=== PATIENT | male | born 1935 | race Caucasian/White ===

== ENCOUNTER → 2017-07-18 15:25 | Outpatient (CLI) | payer MEDICARE, OTHER, SELFPAY ==
--- NOTE | 2017-07-21 07:37 | PM.PFT.1 ---
Pulmonary Function Test Referral & Results Date Patient Seen: 07/18/17 Requesting provider: Eva Garsia Indication: Amiodarone therapy Results: The spirometry demonstrates an FVC of 4.03 L which is 96% of predicted. The FEV1 was measured at 3.01 L which is 102% of predicted. The FEV1/FVC ratio was 75 which is 105% of predicted. No bronchodilator was administered Lung volumes show an SVC of 4.04 L which is 88% for of predicted. The diffusing capacity was measured at 29.4 for which is 85% of predicted. No hemoglobin value was provided, so no correction for potential anemia could be made, if appropriate. The maximum voluntary ventilation was slightly reduced. Interpretation: This study demonstrates normal spirometry and minimal reduction in diffusing capacity. Compared to PFTs performed in September 2015, diffusing capacity is actually improved since prior study.
== END ==
PROVIDERS: Family Provider Internal Medicine; PCP Internal Medicine; Visit Provider Internal Medicine Cardiovascular Disease
DX: Z79.899 Other long term (current) drug therapy (principal)
CPT/HCPCS: 94010; 94726; 94729

== ENCOUNTER → 2017-08-08 10:51 | Outpatient (CLI) | payer MEDICARE, OTHER, SELFPAY ==
[2017-08-08 13:22] LABS: Thyroid Stimulating Hormone 3.45 uIU/mL (0.47-4.68)
== END ==
PROVIDERS: PCP Internal Medicine; Visit Provider Internal Medicine Cardiovascular Disease
DX: I48.0 Paroxysmal atrial fibrillation (principal)
CPT/HCPCS: 36415; 84443

== ENCOUNTER → 2017-08-30 09:18 | Outpatient (CLI) | payer MEDICARE, OTHER, SELFPAY ==
--- NOTE | 2017-08-30 | DI.ECHO.S_ITS ---
[place] [facility]+ [facility] +---------+ : : [address] : : : : [id number] : : : : Phone: [phone]+ Echocardiogram Report + + :Name: BEST PHILIP Study Date: 08/30/2017 Height: 72 in : :[facility] Weight: 225 lb : : Gender: Male BSA: 2.2 m2 : :: 1935 Age: 82 yrs BP: 146/70 mmHg: :Reason For Study: Tricuspid regurgitation, Aortic : :insufficiency, Ascending aortic dilatation : :Ordering Physician: Eva : :Adonayiwroseann Performed By: Soo Coleman : + + Interpretation Summary The left ventricle is normal in size. The ejection fraction is estimated to be 55-60%.There has been no significant change in LV EF since the previous study. The right ventricle is normal in size and function. There is mild to moderate mitral regurgitation. Compared to the prior echo study, there has been an increase in the severity of mitral regurgitation. The aortic valve is mildly calcified. Leaflet mobility is mildly reduced.There is no hemodynamically significant valvular aortic stenosis. There is mild aortic regurgitation. Compared to the prior echo study, there has been no change in the severity of aortic regurgitation. There is mild to moderate tricuspid regurgitation. Compared to the prior echo exam, there has been no change in TR severity. The right ventricular systolic pressure is estimated at 30 mmHg assuming a right atrial pressure of 3 mm Hg. Asc Aorta Diam: 4.0 cm. In 06/2014 it was 3.9 cm. Procedure: A two-dimensional transthoracic echocardiogram with color flow and Doppler was performed. The study quality was technically adequate. Comparison is made with the echocardiogram of 07/03/2014. The patient was in normal sinus rhythm during the exam. The patient had a bundle branch block rhythm during the exam. Left Ventricle: The left ventricle is normal in size. Left ventricular wall thickness is mildly increased. Proximal septal thickening is noted. There is no echo evidence for significant left ventricular outflow tract obstruction. There is no thrombus. The ejection fraction is estimated to be 55-60%. There has been no significant change since the previous study. Septal motion is consistent with conduction abnormality. MV E/A: 0.81 Med Peak E' Hayes: 6.0 cm/sec E/E' med: 13.1. Right Ventricle: The right ventricle is normal in size and function. Atria: The left atrium is severely dilated. The left atrium has mildly increased in size since the prior echo exam. Right atrial size is normal. The right atrium has mildly decreased in size since the prior echo exam. There is no Doppler evidence for an interatrial shunt. Mitral Valve: The mitral valve leaflets are slightly calcified. There is mild mitral annular calcification. There is mild to moderate mitral regurgitation. Compared to the prior echo study, there has been an increase in the severity of mitral regurgitation. Aortic Valve: The aortic valve is trileaflet. The aortic valve is mildly calcified. Leaflet mobility is mildly reduced. There is no hemodynamically significant valvular aortic stenosis. Ao V2 max: 180.8 cm/sec Ao V2 mean: 132.4 cm/sec Ao max P.1 mmHg Ao mean P.7 mmHg. There is mild aortic regurgitation. Compared to the prior echo study, there has been no change in the severity of aortic regurgitation. Tricuspid Valve: The tricuspid valve leaflets are thin and pliable. There is mild to moderate tricuspid regurgitation. The right ventricular systolic pressure is estimated at 30 mmHg assuming a right atrial pressure of 3 mm Hg. Compared to the prior echo exam, there has been no change in TR severity. Pulmonic Valve: The pulmonic valve is not well seen, but is grossly normal. There is mild pulmonic regurgitation. Great Vessels: The aortic root is normal size. The ascending aorta is mildly enlarged. The aortic arch is mildly enlarged. The IVC is of normal diameter and collapses greater than 50% with a sniff. This suggests a low right atrial pressure of 3 mm Hg. Pericardium/ Pleura There is no pericardial effusion. MMode/2D Measurements & Calculations LVIDd: 4.8 cm LVOT diam: 2.3 cm LVIDs: 3.3 cm Ao root diam: 3.6 cm FS: 30.8 % Aortic Jxn: 2.8 cm EPSS: 0.66 cm asc Aorta Diam: 4.0 cm IVSd: 1.2 cm Ao Arch Diam (Prox Trans): 3.6 cm LVPWd: 0.96 cm LV morris. diameter/BSA (cm/m^2): 2.2 LV sys. diameter/BSA (cm/m^2): 1.5 LA A2 area: 30.0 cm2 RA long axis: 5.6 cm LA A4 area: 29.9 cm2 RA area: 18.6 cm2 LA length (vol): 6.5 cm RA vol: 52.1 ml LA vol: 117.2 ml RA : 23.3 ml/m2 LA vol index: 52.3 ml/m2 IVC diam: 2.0 cm RVD1 (basal): 3.4 cm TAPSE: 2.1 cm PORFIRIO (plan): 2.0 cm2 Doppler Measurements & Calculations Ao V2 max: 180.8 cm/sec LVOT Max Hayes: 89.5 cm/sec Ao V2 mean: 132.4 cm/sec LV V1 max P.2 mmHg Ao max P.1 mmHg LV V1 VTI: 20.0 cm Ao mean P.7 mmHg PORFIRIO(I,D): 1.9 cm2 Ao V2 VTI: 44.0 cm PORFIRIO(V,D): 2.1 cm2 sev ratio: 0.45 PORFIRIO indexed to BSA (cm^2/m^2): 0.86 AI P1/2t: 621.6 msec AI dec slope: 152.4 cm/sec2 MV E max hayes: 78.5 cm/sec TR max hayes: 260.6 cm/sec MV A max hayes: 97.0 cm/sec TR max P.2 mmHg MV E/A: 0.81 PA V2 max: 91.4 cm/sec Med Peak E' Hayes: 6.0 cm/sec PA V2 mean: 63.2 cm/sec E/E' med: 13.1 PA mean P.8 mmHg Lat Peak E' Hayes: 5.4 cm/sec PA Accel Time: 0.06 sec E/E' lat: 14.6 E/e' average: 13.9 MV dec time: 0.34 sec MV P1/2t: 98.9 msec MV P1/2t max hayes: 78.6 cm/sec MVA(P1/2t): 2.2 cm2 Reading Physician:REEMA
== END ==
PROVIDERS: Family Provider Internal Medicine; PCP Internal Medicine; Visit Provider Internal Medicine Cardiovascular Disease
DX: I36.1 Nonrheumatic tricuspid (valve) insufficiency (principal); I35.1 Nonrheumatic aortic (valve) insufficiency; I77.819 Aortic ectasia, unspecified site
CPT/HCPCS: 93306

== ENCOUNTER → 2017-09-01 15:24 | Outpatient (CLI) | payer MEDICARE, OTHER, SELFPAY ==
[2017-09-01 16:44] LABS: Alanine Aminotransferase 26 IU/L (21-72); Albumin 3.8 g/dL (3.5-5.0); Albumin Globulin Ratio 1.3 (1.0-2.8); Alkaline Phosphatase 53 U/L (38-126); Aspartate Aminotransferase 18 IU/L (17-59); Bilirubin Total 0.6 mg/dL (0.2-1.3); Blood Urea Nitrogen 22 mg/dL (9-20); Calcium 9.1 mg/dL (8.4-10.2); Carbon Dioxide 26 mmol/L (22-32); Chloride 106 mmol/L (98-107); Estimated Glomerular Filt Rate > 60.0 mL/min (>60); Glucose 84 mg/dL (80-110); HEMOLYSIS < 15 (0-50); Potassium 4.7 mmol/L (3.4-5.1); Sodium 142 mmol/L (137-145); Total Protein 6.8 g/dL (6.3-8.2)
== END ==
PROVIDERS: Family Provider Internal Medicine; PCP Internal Medicine; Visit Provider Internal Medicine Cardiovascular Disease
DX: Z79.899 Other long term (current) drug therapy (principal)
CPT/HCPCS: 36415; 80053

== ENCOUNTER → 2017-10-05 11:12 | Outpatient (CLI) | payer MEDICARE, OTHER, SELFPAY ==
[2017-10-05 11:38] LABS: Add Manual Diff / Slide Review NO; Basophils Percent Auto 0.5 % (0-2); Eosinophils Percent Auto 1.3 % (2-4); Hematocrit 38.3 % (41-53); Hemoglobin 12.8 g/dL (13.5-17.5); Lymphocytes Percent Auto 29.2 % (25-40); Mean Corpuscular HGB Conc 33.4 % (30-36); Mean Corpuscular Hemoglobin 31.8 PG (26-34); Monocytes Percent Auto 9.1 % (3-14); Neutrophils Absolute Auto 3500 /uL (3000-5900); Neutrophils Percent Auto 59.9 % (50-75); Platelet Count 167 X10^3/uL (150-400); Red Blood Cell Count 4.03 X10^6/uL (4.5-5.9); Red Cell Distribution Width 14.1 % (11.6-14.8); White Blood Cell Count 5.9 X10^3/uL (4.5-11.0)
[2017-10-05 12:51] LABS: Alanine Aminotransferase 19 IU/L (21-72); Albumin 3.6 g/dL (3.5-5.0); Albumin Globulin Ratio 1.3 (1.0-2.8); Alkaline Phosphatase 44 U/L (38-126); Aspartate Aminotransferase 19 IU/L (17-59); Bilirubin Total 0.5 mg/dL (0.2-1.3); Blood Urea Nitrogen 21 mg/dL (9-20); Calcium 9.2 mg/dL (8.4-10.2); Carbon Dioxide 30 mmol/L (22-32); Chloride 105 mmol/L (98-107); Estimated Glomerular Filt Rate > 60.0 mL/min (>60); Globulin 2.7 g/dL (1.7-4.1); Glucose 84 mg/dL (80-110); HEMOLYSIS < 15 (0-50); Potassium 4.8 mmol/L (3.4-5.1); Sodium 141 mmol/L (137-145); Total Protein 6.3 g/dL (6.3-8.2)
== END ==
PROVIDERS: Family Provider Internal Medicine; PCP Internal Medicine; Visit Provider Internal Medicine
DX: I10 Essential (primary) hypertension (principal)
CPT/HCPCS: 36415; 80053; 85025

== ENCOUNTER → 2017-11-04 07:56 | Outpatient (CLI) | payer MEDICARE, OTHER, SELFPAY ==
[2017-11-04 09:33] LABS: Cholesterol 190 mg/dL (140-199); HDL Cholesterol 73 mg/dL (40-60); LDL Cholesterol Calculated 105 mg/dL (<100); Triglycerides 58 mg/dL (35-150)
== END ==
PROVIDERS: Family Provider Internal Medicine; PCP Internal Medicine; Visit Provider Internal Medicine
DX: I10 Essential (primary) hypertension (principal); I48.0 Paroxysmal atrial fibrillation
CPT/HCPCS: 36415; 80061

== ENCOUNTER 2017-11-15 09:26 | Emergency (ER) | payer MEDICARE, OTHER, SELFPAY ==
[2017-11-15 09:32] VITALS: BP 144/66; PULSE 78; RESP 16; TEMP 36.4; O2SAT 99; BMI 30.7
--- NOTE | 2017-11-15 09:46 | ED.WOUNDLAC ---
HPI - Wound/Laceration General Chief Complaint: Wound/Laceration Stated Complaint: RT leg injury draining Time Seen by Provider: 11/15/17 09:46 Source: patient Mode of arrival: ambulatory Limitations: no limitations History of Present Illness HPI narrative: Patient states he fell 10 days ago and scraped his leg [place] ladder [place]. He states he was seen initially after the fall at [facility], and was otherwise cleared. Patient states that he has been applying Neosporin and Band-Aids to the wounds and that the wounds continue to drain a yellowish fluid every day. The patient denies fevers or redness around the wounds. He states that otherwise he is feeling quite well. He just wants to get the wounds checked to make sure they are okay. He also wants to know if he should continue to dress the wounds as he has been doing. Onset (ago): day(s) ( ) Extremity Location: Left: lower leg Place: other ( boat) Patient tetanus UTD: Yes Context: accidental Associated symptoms: none Related Data Home Medications Medication Instructions Recorded Confirmed latanoprost [Xalatan] 1 drp [facility] HS #0 08/17/11 timolol maleate #0 08/30/16 amiodarone 100 mg tablet PO 90 Days #90 tab 10/20/17 10/20/17 carvedilol 6.25 mg tablet PO 90 Days #90 tab 10/20/17 10/20/17 dabigatran etexilate 150 mg capsule PO 90 Days #180 cap 10/20/17 10/20/17 lisinopril 10 mg tablet PO 90 Days #90 tab 10/20/17 10/20/17 Allergies Allergy/AdvReac Type Severity Reaction Status Date / Time No Known Drug Allergies Allergy Verified 11/15/17 09:32 Review of Systems Review of Systems All systems reviewed & are unremarkable except as noted in HPI and below Constitutional Denies chills, Denies fever(s), Denies lethargy and Denies weakness Eyes Denies change in vision, Denies eye discharge, Denies irritation and Denies loss of vision ENT Ears, Nose, Mouth, and Throat: Denies change in voice, Denies neck pain and Denies sore throat Cardiovascular Denies chest pain, Denies irregular heart rhythm, Denies lightheadedness, Denies palpitations, Denies dyspnea, Denies dyspnea on exertion and Denies orthopnea Respiratory Denies cough, Denies dyspnea, Denies dyspnea on exertion and Denies wheezing Gastrointestinal Gastrointestinal: Denies abdominal pain, Denies change in bowel habits, Denies diarrhea, Denies nausea and Denies vomiting Genitourinary Denies hematuria, Denies flank pain, Denies urinary incontinence and Denies urinary urgency Musculoskeletal Denies neck pain Integumentary/Breasts Denies pruritus, Denies erythema, Denies rash and Reports wounds ( left anterior tibial area) Neurologic Denies confusion, Denies loss of vision and Denies weakness Psychiatric Denies anxiety, Denies confusion, Denies depression, Denies homicidal ideation and Denies suicidal ideation Endocrine Denies palpitations Hematologic/Lymphatic Denies easy bruising Allergic/Immunologic Denies wheezing [facility] Medical History Paroxysmal atrial fibrillation (Chronic 12/28/10) Essential hypertension (Chronic 12/28/10) Mitral regurgitation (Chronic ~08/2012) Cataract (Chronic) Vitiligo (Chronic ~1947) Peptic ulcer disease (Chronic) Cystocele (Chronic) Glaucoma (Chronic 12/28/10) 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 12/28/10) History of adenomatous polyp of colon (Inactive 12/28/10) Cardiac arrhythmia (Resolved ~2004) Chicken pox (Resolved ~1937) Hepatitis A (Resolved ~1951) Measles (Resolved ~1938) Skin cancer (Resolved ~2000) Surgical History Dupuytren's contracture (Resolved) History of arthroscopic knee surgery (Resolved) History of carpal tunnel repair Family History Brother Age: 81 Fam hx-ischem heart disease Diabetes mellitus Congestive heart failure Father Stroke Grandfather Stroke Grandmother Heart disease Mother Cancer Grandfather Stroke Social History marital status: number of children: 3 household members: spouse lives independently: Yes caregiver/support person: No housing: condominium pets and animals: Yes education level: other (Bachelors Degree) occupational status: other (Retired) Previous occupational history: Software Configuration Engineer of [employer] travel history: over 6 months ago ([place]) leisure activities: exercise (Some.), fishing, reading and other (Boating) Smoking Status: Former smoker Tobacco: How many years used: 10 Smokeless tobacco user: other (Cigarettes) quit status: quit date established (1959) second hand exposure: No alcohol intake: current (Wine every other day.) substance use type: does not use Exam Initial Vital Signs Initial Vital Signs: Vital Signs Temperature 97.6 F 11/15/17 09:32 Pulse Rate 78 11/15/17 09:32 Respiratory Rate 16 11/15/17 09:32 Blood Pressure 144/66 H 11/15/17 09:32 Pulse Oximetry 99 11/15/17 09:32 Const General: cooperative and well developed Nutritional Appearance: well nourished Orientation: alert, awake, oriented x3 and not confused HENPA Head: normal to inspection, normocephalic and atraumatic Resp Effort & Inspection: normal respiratory effort, able to speak in complete sentences and no respiratory distress Cardio Pulses: other ( Intact distal pulses in left lower extremity.) Skin Trauma: abrasion ( patient has 3 full-thickness abrasions over his left anterior tibial area, ranging from 1-1/2 to 2 cm in diameter. No erythema is noted around the wounds; no purulent drainage. Healthy granulation tissue is noted in the floor of the wounds. No foreign bodies. No edema, induration or fluctuance.) Course Course Narrative: Patient's wounds were very well-appearing and I did discuss with this with the patient. He is not a diabetic. We have discussed that a more breathable dressing with probably be preferable to the Band-Aids he has been using. We have discussed the usual indications for return as well as continuing care of the wounds at home. Vital Signs - 8 hr 11/15/17 09:32 Temperature 97.6 F Pulse Rate 78 Respiratory Rate 16 Blood Pressure 144/66 H Pulse Oximetry 99 MDM - Wound/Laceration Medical Records Attestation: I reviewed the patient's medical records. Discharge Plan Departure Patient Disposition: Home Clinical Impression: Abrasion Instructions: DI for Abrasion Prescriptions: No Action latanoprost [Xalatan] 0.005 % drops 2 drp OPHTH HS Qty: 0 RF: 0 timolol maleate 0.5 % drops 1 drp ophthalmic (eye) BID Qty: 0 RF: 0 carvedilol 6.25 mg tablet 6.25 mg PO DAILY 90 Days Qty: 90 RF: 0 lisinopril 10 mg tablet 10 mg PO DAILY 90 Days Qty: 90 RF: 0 amiodarone 100 mg tablet 100 mg PO DAILY 90 Days Qty: 90 RF: 0 dabigatran etexilate 150 mg capsule 150 mg PO BID 90 Days Qty: 180 RF: 0 Referrals: Antoni Easley MD [Primary Care Provider] - ( Follow-up as needed with your doctor.)
--- NOTE | 2017-11-15 10:16 | ED_ITS ---
HPI - Wound/Laceration General Chief Complaint: Wound/Laceration Stated Complaint: RT leg injury draining Time Seen by Provider: 11/15/17 09:46 Source: patient Mode of arrival: ambulatory Limitations: no limitations History of Present Illness HPI narrative: Patient states he fell 10 days ago and scraped his leg on a ladder [place]. He states he was seen initially after the fall at [facility], and was otherwise cleared. Patient states that he has been applying Neosporin and Band-Aids to the wounds and that the wounds continue to drain a yellowish fluid every day. The patient denies fevers or redness around the wounds. He states that otherwise he is feeling quite well. He just wants to get the wounds checked to make sure they are okay. He also wants to know if he should continue to dress the wounds as he has been doing. Onset (ago): day(s) ( ) Extremity Location: Left: lower leg Place: other ( boat) Patient tetanus UTD: Yes Context: accidental Associated symptoms: none Related Data Home Medications Medication Instructions Recorded Confirmed latanoprost [Xalatan] 1 drp [facility] HS #0 08/17/11 timolol maleate #0 08/30/16 amiodarone 100 mg tablet PO 90 Days #90 tab 10/20/17 10/20/17 carvedilol 6.25 mg tablet PO 90 Days #90 tab 10/20/17 10/20/17 dabigatran etexilate 150 mg capsule PO 90 Days #180 cap 10/20/17 10/20/17 lisinopril 10 mg tablet PO 90 Days #90 tab 10/20/17 10/20/17 Allergies Allergy/AdvReac Type Severity Reaction Status Date / Time No Known Drug Allergies Allergy Verified 11/15/17 09:32 Review of Systems Review of Systems All systems reviewed & are unremarkable except as noted in HPI and below Constitutional Denies chills, Denies fever(s), Denies lethargy and Denies weakness Eyes Denies change in vision, Denies eye discharge, Denies irritation and Denies loss of vision ENT Ears, Nose, Mouth, and Throat: Denies change in voice, Denies neck pain and Denies sore throat Cardiovascular Denies chest pain, Denies irregular heart rhythm, Denies lightheadedness, Denies palpitations, Denies dyspnea, Denies dyspnea on exertion and Denies orthopnea Respiratory Denies cough, Denies dyspnea, Denies dyspnea on exertion and Denies wheezing Gastrointestinal Gastrointestinal: Denies abdominal pain, Denies change in bowel habits, Denies diarrhea, Denies nausea and Denies vomiting Genitourinary Denies hematuria, Denies flank pain, Denies urinary incontinence and Denies urinary urgency Musculoskeletal Denies neck pain Integumentary/Breasts Denies pruritus, Denies erythema, Denies rash and Reports wounds ( left anterior tibial area) Neurologic Denies confusion, Denies loss of vision and Denies weakness Psychiatric Denies anxiety, Denies confusion, Denies depression, Denies homicidal ideation and Denies suicidal ideation Endocrine Denies palpitations Hematologic/Lymphatic Denies easy bruising Allergic/Immunologic Denies wheezing [facility] Medical History Paroxysmal atrial fibrillation (Chronic 12/28/10) Essential hypertension (Chronic 12/28/10) Mitral regurgitation (Chronic ~08/2012) Cataract (Chronic) Vitiligo (Chronic ~1947) Peptic ulcer disease (Chronic) Cystocele (Chronic) Glaucoma (Chronic 12/28/10) 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 12/28/10) History of adenomatous polyp of colon (Inactive 12/28/10) Cardiac arrhythmia (Resolved ~2004) Chicken pox (Resolved ~1937) Hepatitis A (Resolved ~1951) Measles (Resolved ~1938) Skin cancer (Resolved ~2000) Surgical History Dupuytren's contracture (Resolved) History of arthroscopic knee surgery (Resolved) History of carpal tunnel repair Family History Brother Age: 81 Fam hx-ischem heart disease Diabetes mellitus Congestive heart failure Father Stroke Grandfather Stroke Grandmother Heart disease Mother Cancer Grandfather Stroke Social History marital status: number of children: 3 household members: spouse lives independently: Yes caregiver/support person: No housing: condominium pets and animals: Yes education level: other (Bachelors Degree) occupational status: other (Retired) Previous occupational history: Tool Grinder Operator External of [employer] travel history: over 6 months ago ([place]) leisure activities: exercise (Some.), fishing, reading and other (Boating) Smoking Status: Former smoker Tobacco: How many years used: 10 Smokeless tobacco user: other (Cigarettes) quit status: quit date established (1959) second hand exposure: No alcohol intake: current (Wine every other day.) substance use type: does not use Exam Initial Vital Signs Initial Vital Signs: Vital Signs Temperature 97.6 F 11/15/17 09:32 Pulse Rate 78 11/15/17 09:32 Respiratory Rate 16 11/15/17 09:32 Blood Pressure 144/66 H 11/15/17 09:32 Pulse Oximetry 99 11/15/17 09:32 Const General: cooperative and well developed Nutritional Appearance: well nourished Orientation: alert, awake, oriented x3 and not confused HENRI Head: normal to inspection, normocephalic and atraumatic Resp Effort & Inspection: normal respiratory effort, able to speak in complete sentences and no respiratory distress Cardio Pulses: other ( Intact distal pulses in left lower extremity.) Skin Trauma: abrasion ( patient has 3 full-thickness abrasions over his left anterior tibial area, ranging from 1-1/2 to 2 cm in diameter. No erythema is noted around the wounds; no purulent drainage. Healthy granulation tissue is noted in the floor of the wounds. No foreign bodies. No edema, induration or fluctuance.) Course Course Narrative: Patient's wounds were very well-appearing and I did discuss with this with the patient. He is not a diabetic. We have discussed that a more breathable dressing with probably be preferable to the Band-Aids he has been using. We have discussed the usual indications for return as well as continuing care of the wounds at home. Vital Signs - 8 hr 11/15/17 09:32 Temperature 97.6 F Pulse Rate 78 Respiratory Rate 16 Blood Pressure 144/66 H Pulse Oximetry 99 MDM - Wound/Laceration Medical Records Attestation: I reviewed the patient's medical records. Discharge Plan Departure Patient Disposition: Home Clinical Impression: Abrasion Instructions: DI for Abrasion Prescriptions: No Action latanoprost [Xalatan] 0.005 % drops 2 drp OPHTH HS Qty: 0 RF: 0 timolol maleate 0.5 % drops 1 drp ophthalmic (eye) BID Qty: 0 RF: 0 carvedilol 6.25 mg tablet 6.25 mg PO DAILY 90 Days Qty: 90 RF: 0 lisinopril 10 mg tablet 10 mg PO DAILY 90 Days Qty: 90 RF: 0 amiodarone 100 mg tablet 100 mg PO DAILY 90 Days Qty: 90 RF: 0 dabigatran etexilate 150 mg capsule 150 mg PO BID 90 Days Qty: 180 RF: 0 Referrals: Antoni Easley MD [Primary Care Provider] - ( Follow-up as needed with your doctor.)
--- NOTE | 2017-11-15 10:30 | PC.NURSE ---
Bacitracin, non adherent pad, and kerlex applied to wound to right whitaker. Patient instructed on how and when to change dressing.
[2017-11-15 10:31] VITALS: BP 127/76; PULSE 77; RESP 18; O2SAT 99
== END 2017-11-15 10:38 | disposition home or self-care (01) ==
PROVIDERS: Emergency Provider Emergency Medicine; Family Provider Internal Medicine; PCP Internal Medicine
DX: S80.811A Abrasion, right lower leg, initial encounter (principal); W18.09XA Striking against other object with subsequent fall, initial encounter
CPT/HCPCS: 99282; 99284

== ENCOUNTER → 2017-12-18 15:35 | Outpatient (CLI) | payer MEDICARE, OTHER, SELFPAY ==
--- NOTE | 2017-12-22 07:36 | PM.PFT.1 ---
Pulmonary Function Test Referral & Results Date Patient Seen: 12/18/17 Requesting provider: Eva Garsia Results: The spirometry demonstrates an FVC of 4.22 L which is 102% of predicted. The FEV1 was measured at 3.0 L which is 103% of predicted. The FEV1/FVC ratio was 71 next feel 100% which is no appreciable change in above normal numbers of predicted. Following the administration of bronchodilator there was 4.38 L. Lung volumes show an SVC of 96% which is 23.57 of predicted. The diffusing capacity was measured at 68% which is [] of predicted. No hemoglobin value was provided, so no correction for potential anemia could be made, if appropriate. The maximum voluntary ventilation was minimally reduced Interpretation: This study demonstrates normal spirometry but mild to moderate reduction in diffusing capacity suggesting some element of disease at the capillary alveolar level Compared to PFTs performed in July 2017, spirometry was equally normal previously but diffusing capacity was higher at 29.4 for or 85% of predicted verses current number of 23.57 or 60% of predicted. Therefore there has been a decline in gas exchange at the capillary alveolar level since previous study in July. Clinical correlation suggested
== END ==
PROVIDERS: PCP Internal Medicine; Visit Provider Internal Medicine Cardiovascular Disease
DX: R06.02 Shortness of breath (principal); I48.0 Paroxysmal atrial fibrillation; I42.9 Cardiomyopathy, unspecified; I44.7 Left bundle-branch block, unspecified; I10 Essential (primary) hypertension; I77.810 Thoracic aortic ectasia; I36.1 Nonrheumatic tricuspid (valve) insufficiency; I35.1 Nonrheumatic aortic (valve) insufficiency; N47.1 Phimosis; R60.0 Localized edema; I44.0 Atrioventricular block, first degree; Z79.899 Other long term (current) drug therapy
CPT/HCPCS: 94010; 94060; 94726; 94729

== ENCOUNTER → 2018-02-05 13:32 | Outpatient (CLI) | payer MEDICARE, OTHER, SELFPAY ==
[2018-02-05 15:26] LABS: Alanine Aminotransferase 30 IU/L (21-72); Albumin 3.8 g/dL (3.5-5.0); Albumin Globulin Ratio 1.3 (1.0-2.8); Alkaline Phosphatase 55 U/L (38-126); Aspartate Aminotransferase 19 IU/L (17-59); Bilirubin Total 0.6 mg/dL (0.2-1.3); Blood Urea Nitrogen 18 mg/dL (9-20); Calcium 8.8 mg/dL (8.4-10.2); Carbon Dioxide 27 mmol/L (22-32); Chloride 106 mmol/L (98-107); Estimated Glomerular Filt Rate > 60.0 mL/min (>60); Globulin 2.9 g/dL (1.7-4.1); Glucose 77 mg/dL (80-110); HEMOLYSIS 24 (0-50); Potassium 4.5 mmol/L (3.4-5.1); Sodium 143 mmol/L (137-145); Total Protein 6.7 g/dL (6.3-8.2)
== END ==
PROVIDERS: Family Provider Internal Medicine; PCP Internal Medicine; Visit Provider Internal Medicine Cardiovascular Disease
DX: I48.0 Paroxysmal atrial fibrillation (principal); I44.7 Left bundle-branch block, unspecified; I10 Essential (primary) hypertension
CPT/HCPCS: 36415; 80053; 84443

== ENCOUNTER → 2018-02-07 09:05 | Outpatient (CLI) | payer MEDICARE, OTHER, SELFPAY ==
[2018-02-07 10:28] LABS: Free T4, Direct Thyroxine 1.34 ng/dL (0.78-2.19)
[2018-02-07 10:42] LABS: Thyroid Stimulating Hormone 5.77 uIU/mL (0.47-4.68)
== END ==
PROVIDERS: Family Provider Internal Medicine; PCP Internal Medicine; Visit Provider Internal Medicine Endocrinology, Diabetes & Metabolism
DX: E06.4 Drug-induced thyroiditis (principal); T46.2X5A Adverse effect of other antidysrhythmic drugs, initial encounter
CPT/HCPCS: 36415; 84439; 84443

== ENCOUNTER → 2018-08-15 17:10 | Outpatient (CLI) | payer MEDICARE, OTHER, SELFPAY ==
[2018-08-15 18:03] LABS: Alanine Aminotransferase 14 IU/L (21-72); Albumin 3.6 g/dL (3.5-5.0); Albumin Globulin Ratio 1.2 (1.0-2.8); Alkaline Phosphatase 58 U/L (38-126); Aspartate Aminotransferase 21 IU/L (17-59); BUN Creatinine Ratio 20.8 (6-22); Bilirubin Total 0.4 mg/dL (0.2-1.3); Blood Urea Nitrogen 25 mg/dL (9-20); Calcium 8.8 mg/dL (8.4-10.2); Carbon Dioxide 28 mmol/L (22-32); Chloride 106 mmol/L (98-107); Estimated Glomerular Filt Rate 57.7 mL/min (>60); Globulin 2.9 g/dL (1.7-4.1); Glucose 89 mg/dL (80-110); HEMOLYSIS < 15 (0-50); Potassium 4.8 mmol/L (3.4-5.1); Sodium 139 mmol/L (137-145); Total Protein 6.5 g/dL (6.3-8.2)
[2018-08-15 18:31] LABS: Thyroid Stimulating Hormone 4.25 uIU/mL (0.47-4.68)
== END ==
PROVIDERS: Family Provider Internal Medicine; PCP Internal Medicine; Visit Provider Internal Medicine Cardiovascular Disease
DX: I10 Essential (primary) hypertension (principal); I44.7 Left bundle-branch block, unspecified; I48.0 Paroxysmal atrial fibrillation
CPT/HCPCS: 36415; 80053; 84443

== ENCOUNTER → 2018-08-17 09:09 | Outpatient (CLI) | payer MEDICARE, OTHER, SELFPAY ==
--- NOTE | 2018-08-17 | DI.RAD.S_ITS ---
PROCEDURE: XR CHEST 2V INDICATIONS: ON AMIODARONE THERAPY TECHNIQUE: 2 views of the chest were acquired. COMPARISON: [facility], , XR CXR 2 VIEW, 12/06/2005, 8:37. FINDINGS: Surgical changes and devices: None. Lungs and pleura: Lungs are clear except for a previously present calcified granuloma lateral left midlung. No pleural effusions or pneumothorax. Mediastinum: Mediastinal contours are normal. Heart size is normal. Bones and chest wall: No suspicious bony abnormalities. Soft tissues appear unremarkable. IMPRESSION: No cardiomegaly or CHF, no sign of pulmonary fibrosis. 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 Dictated by: Ramin Cleveland M.D. on 08/17/2018 at 9:55 Approved by: Ramin Cleveland M.D. on 08/17/2018 at 9:55
== END ==
PROVIDERS: Family Provider Internal Medicine; PCP Internal Medicine; Visit Provider Internal Medicine Cardiovascular Disease
DX: J98.4 Other disorders of lung (principal); Z79.899 Other long term (current) drug therapy
CPT/HCPCS: 71046

== ENCOUNTER 2018-09-02 17:11 | Emergency (ER) | payer MEDICARE, OTHER, SELFPAY ==
[2018-09-02 17:18] VITALS: BP 143/91; PULSE 70; RESP 14; TEMP 36.4; O2SAT 98
--- NOTE | 2018-09-02 18:09 | ED_ITS ---
HPI - Skin/Abscess/Foreign Bdy <DAVEY Toney - Last Filed: 09/02/18 20:41> General Chief complaint: Skin/Abscess/Foreign Body Stated complaint: left wrist wound injury x3 days Time Seen by Provider: 09/02/18 17:28 Source: patient Mode of arrival: ambulatory Limitations: no limitations History of Present Illness HPI narrative: 83-year-old male currently on Pradaxa, presents emergency department today for a skin tear to his right forearm. Patient states he had a small cut in his arm and he put a bandage on his arm, he then remove the bandage 2 days ago which resulted in a skin tear from the adhesive. Patient states that he was hoping somebody could dressed the wound for him and would like a professional to look at it. He denies fever, chills, increased redness around the wound, pain, discharge, chest pain, shortness of breath, abdominal pain, or nausea vomiting diarrhea. MD complaint: laceration Related Data Home Medications Medication Instructions Recorded Confirmed latanoprost [Xalatan] 2 drp OPHTH HS #0 08/17/11 02/07/18 timolol maleate 1 drp OPHTHALMIC (EYE) BID #0 08/30/16 02/07/18 amiodarone 100 mg tablet 100 mg PO DAILY 90 Days #90 tab 10/20/17 02/07/18 carvedilol 6.25 mg tablet 6.25 mg PO DAILY 90 Days #90 tab 10/20/17 02/07/18 dabigatran etexilate 150 mg capsule 150 mg PO BID 90 Days #180 cap 10/20/17 02/07/18 lisinopril 10 mg tablet 10 mg PO DAILY 90 Days #90 tab 10/20/17 02/07/18 Allergies Allergy/AdvReac Type Severity Reaction Status Date / Time No Known Drug Allergies Allergy Verified 02/07/18 10:29 Review of Systems <DAVEY Toney - Last Filed: 09/02/18 20:41> Review of Systems REVIEW OF SYSTEMS: GENERAL: Denies fever or chills. HENT: No head trauma, hearing loss or sore throat. EYES: No loss of vision, double vision, eye pain, or irritation. CARDIOVASCULAR: No chest pain or syncope. RESPIRATORY: No shortness of breath or cough. GASTROINTESTINAL: No nausea, vomiting, diarrhea, or constipation. GENITOURINARY: No flank pain or dysuria. MUSCULOSKELETAL: No pain, weakness, or deformities. INTEGUMENTARY: Complains of laceration to left arm, see HPI. NEURO: No numbness, tingling, memory loss, or confusion. PSYCH: No behavior or mood changes. [facility] <DAVEY Toney - Last Filed: 09/02/18 20:41> Medical History Paroxysmal atrial fibrillation (Chronic 12/28/10) Essential hypertension (Chronic 12/28/10) Mitral regurgitation (Chronic ~08/2012) Cataract (Chronic) Vitiligo (Chronic ~1947) Peptic ulcer disease (Chronic) Cystocele (Chronic) Glaucoma (Chronic 12/28/10) 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 12/28/10) History of adenomatous polyp of colon (Inactive 12/28/10) Cardiac arrhythmia (Resolved ~2004) Chicken pox (Resolved ~1937) Hepatitis A (Resolved ~1951) Measles (Resolved ~1938) Skin cancer (Resolved ~2000) Surgical History Dupuytren's contracture (Resolved) History of arthroscopic knee surgery (Resolved) History of carpal tunnel repair Family History Brother Age: 81 Fam hx-ischem heart disease Diabetes mellitus Congestive heart failure Father Stroke Grandfather Stroke Grandmother Heart disease Mother Cancer Grandfather Stroke Social History marital status: number of children: 3 household members: spouse lives independently: Yes caregiver/support person: No housing: condominium pets and animals: Yes education level: other (Bachelors Degree) occupational status: other (Retired) 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[employer] travel history: over 6 months ago ([place]) leisure activities: exercise (Some.), fishing, reading and other (Boating) Smoking Status: Former smoker Tobacco: How many years used: 10 Smokeless tobacco user: other (Cigarettes) quit status: quit date established (1959) second hand exposure: No alcohol intake: current (Wine every other day.) substance use type: does not use Family History Brother Age: 81 Fam hx-ischem heart disease Diabetes mellitus Congestive heart failure Father Stroke Grandfather Stroke Grandmother Heart disease Mother Cancer Grandfather Stroke Social History marital status: number of children: 3 household members: spouse lives independently: Yes caregiver/support person: No housing: [facility] pets and animals: Yes education level: other (Bachelors Degree) occupational status: other (Retired) 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[employer] travel history: over 6 months ago ([place]) leisure activities: exercise (Some.), fishing, reading and other (Boating) Smoking Status: Former smoker Tobacco: How many years used: 10 Smokeless tobacco user: other (Cigarettes) quit status: quit date established (1959) second hand exposure: No alcohol intake: current (Wine every other day.) substance use type: does not use Exam <DAVEY Toney - Last Filed: 09/02/18 20:41> Initial Vital Signs Initial Vital Signs: Vital Signs Temperature 97.6 F 09/02/18 17:18 Pulse Rate 70 09/02/18 17:18 Respiratory Rate 14 09/02/18 17:18 Blood Pressure 143/91 H 09/02/18 17:18 Pulse Oximetry 98 09/02/18 17:18 PHYSICAL EXAMINATION: GENERAL: Well groomed, alert, and cooperative. Answers questions promptly and appropriately. Vital signs noted. HENT: Normocephalic, atraumatic. EYES: conjunctiva pink, sclera white, no periorbital swelling. RESPIRATORY: Normal respiratory rate, trachea midline, airway patent. No stridor, nasal flaring or accessory muscle use. MUSCULOSKELETAL: Normal gait and coordination. Equal tone and mass bilaterally. EXTREMITIES: CMS intact. Moves all extremities. SKIN: Warm, dry, soft, appropriate color for ethnicity. A 4 cm x 2 cm skin tear noted to the top of left forearm. No bleeding, erythema, drainage, or necrosis noted. No surrounding erythema or swelling. Wound appears to be healing well without infection. NEURO: Alert and Oriented X 3. Good coordination. No ataxia, or sensory deficits, or cognitive issues. PSYCH: Appropriate affect and mood. <Celia Garcia DO - Last Filed: 09/05/18 07:37> Initial Vital Signs Initial Vital Signs: Vital Signs Temperature 97.6 F 09/02/18 17:18 Pulse Rate 70 09/02/18 17:18 Respiratory Rate 14 09/02/18 17:18 Blood Pressure 143/91 H 09/02/18 17:18 Pulse Oximetry 98 09/02/18 17:18 Course <DAVEY Toney - Last Filed: 09/02/18 20:41> Course Narrative: Patient's wound was dressed with bacitracin and nonstick bandage to prevent further tearing of the skin. Consultations Consultation #1: Patient staffed with Dr. Garcia. Vital Signs - 8 hr 09/02/18 17:18 Temperature 97.6 F Pulse Rate 70 Respiratory Rate 14 Blood Pressure 143/91 H Pulse Oximetry 98 <Celia Garcia DO - Last Filed: 09/05/18 07:37> Vital Signs - 8 hr 09/02/18 17:18 Temperature 97.6 F Pulse Rate 70 Respiratory Rate 14 Blood Pressure 143/91 H Pulse Oximetry 98 MDM - Skin/Abscess/Foreign Bdy <DAVEY Toney - Last Filed: 09/02/18 20:41> Medical Records Attestation: I reviewed the patient's medical records. Lab Data Attestation: I reviewed the patient's lab results. MDM Narrative Medical decision making narrative: I suspect that the patient has a normal healing skin tear, but was unable to dress this with materials at home as a the skin tear became bigger from the bandage that was initially applied. Very little of suspicion of infection due to lack of fever, surrounding erythema, exudate, increased pain, or increased warmth. Discharge Plan Departure Patient Disposition: Home Clinical Impression: Skin tear Discharge Date/Time: 09/02/18 18:21 Interventions: ED Discharge Assessment Last Done: 09/02/18 18:15 Instructions: DI for Laceration Repair Activity Restrictions/Additional Instructions: Thank you for entrusting me with your care today. As discussed, please leave this dressing in place for the next 24 hours. After that you may remove the dressing any use gauze to cover the wound. Follow up with her primary care provider in the next few days if he develops increased redness and or pus discharge from the wound. Return to the emergency department if he develops fevers, chest pain, shortness of breath, or syncope. Prescriptions: No Action latanoprost [Xalatan] 0.005 % drops 2 drp OPHTH HS Qty: 0 RF: 0 timolol maleate 0.5 % drops 1 drp ophthalmic (eye) BID Qty: 0 RF: 0 carvedilol 6.25 mg tablet 6.25 mg PO DAILY 90 Days Qty: 90 RF: 0 lisinopril 10 mg tablet 10 mg PO DAILY 90 Days Qty: 90 RF: 0 amiodarone 100 mg tablet 100 mg PO DAILY 90 Days Qty: 90 RF: 0 dabigatran etexilate 150 mg capsule 150 mg PO BID 90 Days Qty: 180 RF: 0 Referrals: Antoni Easley MD [Primary Care Provider] - <Celia Garcia DO - Last Filed: 09/05/18 07:37> Cosign ED Attending Cosyasature Attestation: I was immediately available in the department for consultation. Documentation has been reviewed. I agree with assessment and plan.
--- NOTE | 2018-09-02 18:13 | PC.NURSE ---
Bacitracin, telfa and gauze to left wrist. Extra dressings sent home with patient. Verbalizes understanding of watching for s/sx of infection. Ambulatory from ED. [place] intact [place] [facility].
== END 2018-09-02 18:21 | disposition home or self-care (01) ==
PROVIDERS: Emergency Provider Nurse Practitioner; PCP Internal Medicine
DX: S51.811A Laceration without foreign body of right forearm, initial encounter (principal); Z79.02 Long term (current) use of antithrombotics/antiplatelets
CPT/HCPCS: 99282

== ENCOUNTER → 2018-10-08 08:28 | Outpatient (CLI) | payer MEDICARE, OTHER, SELFPAY ==
[2018-10-08 09:36] LABS: Alanine Aminotransferase 19 IU/L (21-72); Albumin 3.8 g/dL (3.5-5.0); Albumin Globulin Ratio 1.2 (1.0-2.8); Alkaline Phosphatase 53 U/L (38-126); Aspartate Aminotransferase 21 IU/L (17-59); BUN Creatinine Ratio 19.2 (6-22); Bilirubin Total 0.5 mg/dL (0.2-1.3); Blood Urea Nitrogen 25 mg/dL (9-20); Calcium 8.6 mg/dL (8.4-10.2); Carbon Dioxide 29 mmol/L (22-32); Chloride 106 mmol/L (98-107); Cholesterol 218 mg/dL (140-199); Estimated Glomerular Filt Rate 52.6 mL/min (>60); Globulin 3.1 g/dL (1.7-4.1); Glucose 90 mg/dL (80-110); HDL Cholesterol 63 mg/dL (40-60); HEMOLYSIS < 15 (0-50); LDL Cholesterol Calculated 145 mg/dL (<100); Potassium 4.6 mmol/L (3.4-5.1); Sodium 139 mmol/L (137-145); Total Protein 6.9 g/dL (6.3-8.2); Triglycerides 49 mg/dL (35-150)
[2018-10-08 09:52] LABS: Free T4, Direct Thyroxine 1.01 ng/dL (0.78-2.19)
[2018-10-08 10:06] LABS: Thyroid Stimulating Hormone 5.72 uIU/mL (0.47-4.68)
== END ==
PROVIDERS: PCP Internal Medicine; Visit Provider Internal Medicine
DX: I10 Essential (primary) hypertension (principal); Z13.6 Encounter for screening for cardiovascular disorders; Z79.899 Other long term (current) drug therapy
CPT/HCPCS: 36415; 80053; 80061; 84439; 84443

== ENCOUNTER 2019-01-27 08:09 | Emergency (ER) | payer MEDICARE, OTHER, SELFPAY ==
[2019-01-27 08:18] VITALS: BP 132/76; PULSE 73; RESP 16; TEMP 36.6; O2SAT 100; BMI 29.1
--- NOTE | 2019-01-27 08:32 | ED_ITS ---
HPI - Male Genitourinary General Chief complaint: Urogenital-Male Stated complaint: blood in urine/ reff from urologist Time Seen by Provider: 01/27/19 08:20 Source: patient Mode of arrival: Ambulatory History of Present Illness HPI Narrative: Patient comes emergency department complaining of hematuria that has been going on for approximately the last month, intermittently. Patient states that he has not had any fevers, abdominal pain, back pain, dysuria, nausea, or vomiting. He states that he 1st noticed a bloody discharge on his un derwear and that this has happened intermittently since. He denies any visible blood in his urine. Patient states that he is established with Dr. Currie of urology, and that he has had a few urologic procedures with her. Patient states he does not have a history of kidney stones. He states that he is here today because Dr. Currie fit him in for an appointment tomorrow, but wanted him to come and get blood work here prior to his appointment. Patient denies any other complaints at this time. Patient is on Pradaxa. He denies any trauma to his penis or pelvic area. He denies any external lesions. Related Data Home Medications Medication Instructions Recorded Confirmed latanoprost [Xalatan] 2 clemente [facility] HS #0 08/17/11 12/21/18 amiodarone 100 mg tablet 100 mg PO DAILY 90 Days #90 tab 10/20/17 12/21/18 carvedilol 6.25 mg tablet 6.25 mg PO DAILY 90 Days #90 tab 10/20/17 12/21/18 dabigatran etexilate 150 mg capsule 150 mg PO BID 90 Days #180 cap 10/20/17 12/21/18 lisinopril 10 mg tablet 10 mg PO DAILY 90 Days #90 tab 10/20/17 12/21/18 Allergies Allergy/AdvReac Type Severity Reaction Status Date / Time No Known Drug Allergies Allergy Verified 12/21/18 10:37 Review of Systems Constitutional Constitutional: Denies chills, Denies fatigue, Denies fever(s), Denies frequent falls, Denies lethargy and Denies weakness Eyes Eyes: Denies change in vision, Denies eye discharge, Denies irritation and Denies loss of vision ENT Ears, Nose, Mouth, and Throat: Denies change in voice, Denies dizziness, Denies neck pain, Denies sore throat and Denies throat swelling Cardiovascular Cardiovascular: Denies chest pain, Denies irregular heart rhythm, Denies lightheadedness, Denies palpitations, Denies dyspnea, Denies dyspnea on exertion and Denies orthopnea Respiratory Respiratory: Denies cough, Denies dyspnea, Denies dyspnea on exertion and Denies wheezing Gastrointestinal Gastrointestinal: Denies abdominal pain, Denies change in bowel habits, Denies d iarrhea, Denies nausea and Denies vomiting Genitourinary Genitourinary: Denies flank pain, Reports penile discharge (Bloody), Denies urinary incontinence and Denies urinary urgency Musculoskeletal Musculoskeletal: Denies back pain, Denies muscle weakness, Denies neck pain, Denies numbness and Denies tingling Integumentary/Breasts Skin/Breast: Denies pruritus, Denies erythema, Denies rash and Denies wounds Neurologic Neurologic: Denies behavioral changes, Denies confusion, Denies dizziness, Denies frequent falls, Denies loss of vision, Denies numbness, Denies tingling and Denies weakness Psychiatric Psychiatric: Denies anxiety, Denies behavioral changes, Denies confusion, Denies depression, Denies homicidal ideation and Denies suicidal ideation Endocrine Endocrine: Denies fatigue, Denies flushing and Denies palpitations Hematologic/Lymphatic Hematologic/Lymphatic: Denies easy bruising Allergic/Immunologic Allergic/Immunologic: Denies urticaria, Denies throat swelling and Denies wheezing Patient History Medical History Cardiac arrhythmia (Resolved ~2004) Cataract (Chronic) Chicken pox (Resolved ~1937) Cystocele (Chronic) 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 12/28/10) Essential hypertension (Chronic 12/28/10) Glaucoma (Chronic 12/28/10) Hepatitis A (Resolved ~1951) History of adenomatous polyp of colon (Inactive 12/28/10) Measles (Resolved ~1938) Mitral regurgitation (Chronic ~08/2012) Paroxysmal atrial fibrillation (Chronic 12/28/10) Peptic ulcer disease (Chronic) Skin cancer (Resolved ~2000) Vitiligo (Chronic ~1947) Surgical History Dupuytren's contracture (Resolved) History of arthroscopic knee surgery (Resolved) History of carpal tunnel repair Family History Brother Age: 82 Fam hx-ischem heart disease Diabetes mellitus Congestive heart failure Father Stroke Grandfather Stroke Grandmother Heart disease Mother Cancer Grandfather Stroke Social History marital status: number of children: 3 household members: spouse lives independently: Yes caregiver/support person: No housing: condominium pets and animals: Yes education level: other (Bachelors Degree) occupational status: other (Retired) 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[employer] travel history: over 6 months ago ([place]) leisure activities: exercise (Some.), fishing, reading and other (Boating) Smoking Status: Former smoker Tobacco: How many years used: 10 Smokeless tobacco user: other (Cigarettes) quit status: quit date established (1959) second hand exposure: No alcohol intake: current (Wine every other day.) substance use type: does not use Substance Use Type: does not use Exam Initial Vital Signs Initial Vital Signs: Vital Signs Temperature 97.8 F 01/27/19 08:18 Pulse Rate 73 01/27/19 08:18 Respiratory Rate 16 01/27/19 08:18 Blood Pressure 132/76 01/27/19 08:18 Pulse Oximetry 100 01/27/19 08:18 Const General: cooperative and well developed Nutritional Appearance: well nourished Orientation: alert, awake, oriented x3 and not confused [facility] Head: normocephalic and atraumatic Ears: external ears normal Nose: external nose normal and No nasal discharge Face and sinus: face symmetric and No dry mucous membranes Mouth: oral mucosae normal and moist mucous membranes Teeth and gingiva: dentition normal Eyes General: appearance normal, both eyes and all related structures Eyelids: eyelids normal Conjunctivae: conjunctivae normal Sclera: sclerae normal Pupils: PERRL EOM: EOM intact bilaterally Neck Neck: normal visual inspection, trachea midline, No lymphadenopathy, No midline deformity and No JVD Lymphatic: No lymphedema Chest Chest: normal inspection of the chest Resp Effort & Inspection: normal respiratory effort, able to speak in complete sentences, no respiratory distress and no use of accessory muscles Auscultation: clear to auscultation bilaterally, no rales, no rhonchi and no wheezes Cardio Rate: regular rate Rhythm: regular rhythm Heart Sounds: no click, no gallops, no murmurs and no rubs Pulses: normal peripheral pulses GI Inspection: non-distended Palpation: soft, no hepatosplenomegaly, No guarding, No pulsatile mass and No tender Auscultation: normal bowel sounds Back/Spine/Pelvis Back: No CVA tenderness Cervical Spine: cervical ROM normal and No pain with cervical ROM Thoracic/Lumbar Spine: thoracic and lumbar spine normal to inspection Skin General: no rashes or lesions noted, No jaundice and No petechiae Neuro General: alert, oriented x3, gait normal and no focal motor deficits Speech: speech normal Extrem General: full ROM, no clubbing, cyanosis or edema, no pedal edema and no calf tenderness Psych Appearance: well kempt Mental Status: mental status grossly normal Attitude: cooperative Thought Content: normal and suicidality Judgment: judgment good Course Course Course Narrative: Patient was very well-appearing in the emergency department. Patient was worked up with laboratory studies and urinalysis. I did not feel further investigation with imaging was indicated, as patient will be seeing his urologist tomorrow. Orders Ordered: ED Orders 01/27/19 08:32 Urinalysis and Microscopic Stat Vital Signs Vital signs: Vital Signs - 8 hr 01/27/19 08:18 Temperature 97.8 F Pulse Rate 73 Respiratory Rate 16 Blood Pressure 132/76 Pulse Oximetry 100 MDM - Male Genitourinary Medical Records Attestation: I reviewed the patient's medical records. Lab Data Attestation: I reviewed the patient's lab results. Result diagrams: 01/27/19 09:19 01/27/19 09:19 Labs: Lab Results 01/27/19 01/27/19 01/27/19 Range/Units 09:19 09:19 09:19 WBC 5.4 (4.5-11.0) X10^3/uL RBC 3.91 L (4.5-5.9) X10^6/uL Hgb 12.4 L (13.5-17.5) g/dL Hct 37.1 L (41-53) % MCV 95.0 (80-100) fL MCH 31.6 (26-34) PG MCHC 33.3 (30-36) % RDW 14.2 (11.6-14.8) % Plt Count 168 (150-400) X10^3/uL Neut % (Auto) 62.4 (50-75) % Lymph % (Auto) 25.4 (25-40) % Moore % (Auto) 10.0 (3-14) % Eos % (Auto) 1.2 L (2-4) % Baso % (Auto) 1.0 (0-2) % Neut # (Auto) 3400 (7097-3729) /uL Lymph # (Auto) 1400 (2168-5578) /uL Moore # (Auto) 500 (0-900) /uL Eos # (Auto) 100 (0-450) /uL Baso # (Auto) 100 (0-100) /uL PT 18.0 H (10.1-12.7) SECONDS INR 1.5 H (0.9-1.3) Sodium 139 (137-145) mmol/L Potassium 4.2 (3.4-5.1) mmol/L Chloride 108 H (98-107) mmol/L Carbon Dioxide 27 (22-32) mmol/L BUN 16 (9-20) mg/dL Creatinine 0.90 (0.66-1.25) mg/dL Estimated GFR > 60.0 (>60) mL/min BUN/Creatinine Ratio 17.8 (6-22) Glucose 93 (80-110) mg/dL Calcium 8.5 (8.4-10.2) mg/dL Total Bilirubin 0.7 (0.2-1.3) mg/dL AST 20 (17-59) IU/L ALT 14 (<50) IU/L Alkaline Phosphatase 50 (38-126) U/L Total Protein 6.1 L (6.3-8.2) g/dL Albumin 3.4 L (3.5-5.0) g/dL Globulin 2.7 (1.7-4.1) g/dL Albumin/Globulin Ratio 1.3 (1.0-2.8) Urine Color Urine Appearance Urine pH (4.5-8.0) Ur Specific [place] (1.000-1.035) Urine Protein (Negative) Urine Glucose (UA) (Negative) g/dL Urine Ketones (NEGATIVE) Urine Occult Blood (Negative) Urine Nitrate (Negative) Urine Bilirubin (NEGATIVE) Urine Urobilinogen (0.2) E.U./dL Ur Leukocyte Esterase (NEGATIVE) Urine RBC (0-5/HPF) Urine WBC (0-5/HPF) Urine Bacteria (None) Hyaline Casts (None) Urine Mucus (Negative) Ur Culture Indicated? 01/27/19 Range/Units 09:30 WBC (4.5-11.0) X10^3/uL RBC (4.5-5.9) X10^6/uL Hgb (13.5-17.5) g/dL Hct (41-53) % MCV (80-100) fL MCH (26-34) PG MCHC (30-36) % RDW (11.6-14.8) % Plt Count (150-400) X10^3/uL Neut % (Auto) (50-75) % Lymph % (Auto) (25-40) % Moore % (Auto) (3-14) % Eos % (Auto) (2-4) % Baso % (Auto) (0-2) % Neut # (Auto) (5442-1065) /uL Lymph # (Auto) (6296-1120) /uL Moore # (Auto) (0-900) /uL Eos # (Auto) (0-450) /uL Baso # (Auto) (0-100) /uL PT (10.1-12.7) SECONDS INR (0.9-1.3) Sodium (137-145) mmol/L Potassium (3.4-5.1) mmol/L Chloride (98-107) mmol/L Carbon Dioxide (22-32) mmol/L BUN (9-20) mg/dL Creatinine (0.66-1.25) mg/dL Estimated GFR (>60) mL/min BUN/Creatinine Ratio (6-22) Glucose (80-110) mg/dL Calcium (8.4-10.2) mg/dL Total Bilirubin (0.2-1.3) mg/dL AST (17-59) IU/L ALT (<50) IU/L Alkaline Phosphatase (38-126) U/L Total Protein (6.3-8.2) g/dL Albumin (3.5-5.0) g/dL Globulin (1.7-4.1) g/dL Albumin/Globulin Ratio (1.0-2.8) Urine Color Yellow Urine Appearance Clear Urine pH 6.0 (4.5-8.0) Ur Specific [place] 1.015 (1.000-1.035) Urine Protein Negative (Negative) Urine Glucose (UA) Negative (Negative) g/dL Urine Ketones Trace H (NEGATIVE) Urine Occult Blood Negative (Negative) Urine Nitrate Negative (Negative) Urine Bilirubin Negative (NEGATIVE) Urine Urobilinogen 1.0 (0.2) E.U./dL Ur Leukocyte Esterase Negative (NEGATIVE) Urine RBC None seen (0-5/HPF) Urine WBC None seen (0-5/HPF) Urine Bacteria Occasional (0-1) (None) Hyaline Casts 1-5/lpf (None) Urine Mucus 2+ H (Negative) Ur Culture Indicated? Cult not indicated Discharge Plan Departure Patient Disposition: Home Clinical Impression: Hematuria Qualifiers: Hematuria type: unspecified type Qualified Code(s): R31.9 - Hematuria, unspecified Discharge Date/Time: 01/27/19 10:41 Instructions: DI for Hematuria Prescriptions: No Action latanoprost [Xalatan] 0.005 % drops 2 drp OPHTH HS Qty: 0 RF: 0 carvedilol 6.25 mg tablet 6.25 mg PO DAILY 90 Days Qty: 90 RF: 0 lisinopril 10 mg tablet 10 mg PO DAILY 90 Days Qty: 90 RF: 0 amiodarone 100 mg tablet 100 mg PO DAILY 90 Days Qty: 90 RF: 0 dabigatran etexilate 150 mg capsule 150 mg PO BID 90 Days Qty: 180 RF: 0 Referrals: Dorina Yoon MD [Non-Staff] - Antoni Easley MD [Primary Care Provider] -
[2019-01-27 09:27] LABS: Add Manual Diff / Slide Review NO; Basophils Absolute Auto 100 /uL (0-100); Eosinophils Absolute Auto 100 /uL (0-450); Eosinophils Percent Auto 1.2 % (2-4); Hematocrit 37.1 % (41-53); Hemoglobin 12.4 g/dL (13.5-17.5); Lymphocytes Absolute Auto 1400 /uL (1100-4500); Lymphocytes Percent Auto 25.4 % (25-40); Mean Corpuscular HGB Conc 33.3 % (30-36); Mean Corpuscular Hemoglobin 31.6 PG (26-34); Monocytes Absolute Auto 500 /uL (0-900); Neutrophils Absolute Auto 3400 /uL (1500-7000); Neutrophils Percent Auto 62.4 % (50-75); Platelet Count 168 X10^3/uL (150-400); Red Blood Cell Count 3.91 X10^6/uL (4.5-5.9); Red Cell Distribution Width 14.2 % (11.6-14.8); White Blood Cell Count 5.4 X10^3/uL (4.5-11.0)
[2019-01-27 09:33] LABS: INR 1.5 (0.9-1.3)
[2019-01-27 09:37] LABS: Alanine Aminotransferase 14 IU/L (<50); Albumin 3.4 g/dL (3.5-5.0); Albumin Globulin Ratio 1.3 (1.0-2.8); Alkaline Phosphatase 50 U/L (38-126); Aspartate Aminotransferase 20 IU/L (17-59); BUN Creatinine Ratio 17.8 (6-22); Bilirubin Total 0.7 mg/dL (0.2-1.3); Blood Urea Nitrogen 16 mg/dL (9-20); Calcium 8.5 mg/dL (8.4-10.2); Carbon Dioxide 27 mmol/L (22-32); Chloride 108 mmol/L (98-107); Estimated Glomerular Filt Rate > 60.0 mL/min (>60); Globulin 2.7 g/dL (1.7-4.1); Glucose 93 mg/dL (80-110); HEMOLYSIS < 15 (0-50); Potassium 4.2 mmol/L (3.4-5.1); Sodium 139 mmol/L (137-145); Total Protein 6.1 g/dL (6.3-8.2)
[2019-01-27 10:01] LABS: RBC Urine None Seen (0-5/HPF); WBC Urine None Seen (0-5/HPF)
[2019-01-27 10:03] LABS: Appearance Urine UA CLEAR; Bilirubin Urine UA NEGATIVE (NEGATIVE); Color Urine UA YELLOW; Glucose Urine UA NEGATIVE (Negative); Ketones Urine UA TRACE (NEGATIVE); Leukocyte Esterase Urine UA NEGATIVE (NEGATIVE); Nitrite Urine UA NEGATIVE (Negative); Occult Blood Urine UA NEGATIVE (Negative); Protein Urine UA NEGATIVE (Negative); Specific Gravity Urine UA 1.015 (1.000-1.035)
[2019-01-27 10:12] LABS: Bacteria Urine Occasional (0-1); Culture Indicated Urine Cult Not Indicated; Hyaline Casts Urine 1-5/LPF; Mucus Urine 2+ (Negative)
[2019-01-27 10:41] VITALS: BP 146/64; PULSE 65; RESP 16; O2SAT 100
== END 2019-01-27 10:41 | disposition home or self-care (01) ==
PROVIDERS: Emergency Provider Emergency Medicine; PCP Internal Medicine
DX: R31.9 Hematuria, unspecified (principal)
CPT/HCPCS: 36415; 80053; 81001; 85025; 85610; 99282; 99283

== ENCOUNTER → 2019-02-06 11:02 | Outpatient (CLI) | payer MEDICARE, OTHER, SELFPAY ==
--- NOTE | 2019-02-06 | DI.RAD.S_ITS ---
PROCEDURE: XR CHEST 2V INDICATIONS: AMIODARONE THERAPY TECHNIQUE: 2 views of the chest were acquired. COMPARISON: [facility], RG, XR CXR 2 VIEW, 12/06/2005, 8:37. [facility], RG, XR CXR 2 VIEW, 12/02/2005, 8:40. [facility], CR, XR CHEST 2V, 08/17/2018, 9:31. FINDINGS: Surgical changes and devices: None. Lungs and pleura: There is mild prominence of the pulmonary vasculature. There is an approximately 1.0 cm pulmonary nodule projecting over the lateral left midlung field, which is not significantly changed in size or appearance when compared with prior chest radiographs dating back to 12/02/05. Lungs are otherwise clear. No pleural effusions or pneumothorax. Mediastinum: Mediastinal contours are normal. Heart size is normal. Bones and chest wall: No suspicious bony abnormalities. There are degenerative changes of the bilateral acromioclavicular joints. IMPRESSION: 1. No significant interval change in size or appearance of the approximately 1.0 cm pulmonary nodule projecting over the lateral left midlung field when compared with prior chest radiographs dating back to 12/02/05, most consistent with a pulmonary granuloma. 2. Mild prominence of the pulmonary vasculature. Dictated by: Yang Weinstein M.D. on 02/06/2019 at 14:21 Approved by: Yang Weinstein M.D. on 02/06/2019 at 14:28
== END ==
PROVIDERS: PCP Internal Medicine; Visit Provider Internal Medicine Cardiovascular Disease
DX: R91.1 Solitary pulmonary nodule (principal); Z79.899 Other long term (current) drug therapy
CPT/HCPCS: 71046

== ENCOUNTER → 2019-03-11 09:11 | Outpatient (CLI) | payer MEDICARE, OTHER, SELFPAY ==
--- NOTE | 2019-03-11 | DI.CT.S_ITS ---
PROCEDURE: CT ABDOMEN PELVIS WO/W CON INDICATIONS: HEMATURIA TECHNIQUE: Optional 5 mm thick noncontrast images acquired from the diaphragm to the symphysis pubis. After the administration of intravenous contrast, 5 mm thick images acquired from the diaphragm to the symphysis pubis after a 10-minute delay. 2 mm thick coronal and sagittal reformats were then performed of the kidneys and ureters. For radiation dose reduction, the following was used: automated exposure control, adjustment of mA and/or kV according to patient size. COMPARISON: None. FINDINGS: Image quality: Excellent. Lung bases: Bibasilar atelectasis. Heart size is normal. Urinary system: Both kidneys are normal in size, without hydronephrosis or nephrolithiasis on pre-contrast images. No perinephric fat stranding. There is normal bilateral renal enhancement. Renal calyces appear normal in morphology when filled with contrast. Opacified portions of both ureters demonstrate normal caliber. There is mild circumferential bowel wall thickening with suggestion of thickened trabeculation on the postcontrast images. This may be due to incomplete distention although sequela of chronic bladder outlet obstruction may have a similar appearance given presence of a prominent sized prostate gland. No calcified bladder stones. There is a 1.3 cm left renal cyst. Mild cortical scarring of the left kidney. No suspicious intraluminal filling defect within the visualized upper and lower urinary collecting system. Other solid organs: Liver is normal in size and enhancement. There are 2 subcentimeter hepatic hypodensities noted in the inferior margin of the right hepatic lobe which are too small to characterize but may represent cysts versus hemangiomas. Gallbladder is unremarkable. Biliary system is non dilated. Pancreas enhances normally. Spleen is normal in size and enhancement. Scattered splenic calcifications likely sequela of remote granulomatous disease. No adrenal nodules. Peritoneum and bowel: Scattered colonic diverticula without acute inflammation. Bowel loops demonstrate normal wall thickness and caliber. No free fluid or air. Nodes and vessels: There is moderate mesenteric stranding with suggestion of a surrounding capsule with numerous scattered internal mesenteric lymph nodes that are more notable for number rather than size. Aorta and inferior vena cava are normal in size. Scattered atherosclerotic calcifications of the abdominal aorta and iliac vessels without aneurysmal dilatation. Abdominal wall: No ventral hernias. Pelvis: No pathologic free pelvic fluid. No inguinal hernias or adenopathy. Bones: No suspicious bony lesions. No acute vertebral body compression fractures. IMPRESSION: 1. No evidence for urolithiasis or obstructive uropathy. 2. Prostatic enlargement with heterogeneous enhancement and probable 1.2 cm prostate cyst. Consider correlation with laboratory evaluation and possible urology consultation. 3. Minimal urinary bladder wall thickening and trabeculation possibly related to incomplete distention although sequela of chronic bladder outlet obstruction may have a similar appearance given presence of a prominent prostate gland. 4. Moderate mesenteric inflammatory stranding with numerous scattered mesenteric lymph nodes which are more notable for number rather than size. This finding is nonspecific and may be seen with both benign and malignant etiologies. Differential includes lymphoma, carcinoid tumor, inflammatory pseudotumor, or mesenteric edema. 5. Subcentimeter inferior right hepatic lobe hypodensities likely representing hepatic cysts versus hemangiomas. 6. Colonic diverticulosis without acute diverticulitis. Other chronic findings as above. Dictated by: Armando Angel M.D. on 03/11/2019 at 16:13 Approved by: Armando Angle M.D. on 03/11/2019 at 17:02
[2019-03-11 09:58] LABS: Blood Urea Nitrogen 13 mg/dL (9-20); Estimated Glomerular Filt Rate > 60.0 mL/min (>60)
[2019-03-11 10:33] LABS: Blood Urea Nitrogen 13 mg/dL (9-20); Calcium 8.6 mg/dL (8.4-10.2); Carbon Dioxide 28 mmol/L (22-32); Chloride 107 mmol/L (98-107); Estimated Glomerular Filt Rate > 60.0 mL/min (>60); Glucose 89 mg/dL (80-110); HEMOLYSIS < 15 (0-50); Potassium 4.2 mmol/L (3.4-5.1); Sodium 141 mmol/L (137-145)
[2019-03-11 11:05] LABS: Thyroid Stimulating Hormone 6.44 uIU/mL (0.47-4.68)
== END ==
PROVIDERS: Family Provider Internal Medicine Cardiovascular Disease; PCP Internal Medicine; Visit Provider Urology
DX: R31.9 Hematuria, unspecified (principal); N28.1 Cyst of kidney, acquired; K57.90 Diverticulosis of intestine, part unspecified, without perforation or abscess without bleeding; N40.0 Benign prostatic hyperplasia without lower urinary tract symptoms; Z79.899 Other long term (current) drug therapy
CPT/HCPCS: 36415; 74178; 80048; 82565; 84443; 84520; Q9967

== ENCOUNTER → 2019-03-18 14:44 | Outpatient (CLI) | payer MEDICARE, OTHER, SELFPAY ==
[2019-03-18 15:55] LABS: Add Manual Diff / Slide Review NO; Basophils Absolute Auto 0 /uL (0-100); Basophils Percent Auto 0.8 % (0-2); Eosinophils Absolute Auto 100 /uL (0-450); Eosinophils Percent Auto 1.8 % (2-4); Hematocrit 38.6 % (41-53); Hemoglobin 12.8 g/dL (13.5-17.5); Lymphocytes Absolute Auto 1600 /uL (1100-4500); Lymphocytes Percent Auto 28.4 % (25-40); Mean Corpuscular HGB Conc 33.1 % (30-36); Mean Corpuscular Hemoglobin 31.4 PG (26-34); Mean Corpuscular Volume 94.9 fL (80-100); Monocytes Absolute Auto 500 /uL (0-900); Monocytes Percent Auto 9.2 % (3-14); Neutrophils Absolute Auto 3400 /uL (1500-7000); Neutrophils Percent Auto 59.8 % (50-75); Platelet Count 199 X10^3/uL (150-400); Red Blood Cell Count 4.07 X10^6/uL (4.5-5.9); Red Cell Distribution Width 14.9 % (11.6-14.8); White Blood Cell Count 5.7 X10^3/uL (4.5-11.0)
[2019-03-18 17:06] LABS: Free T4, Direct Thyroxine 1.17 ng/dL (0.78-2.19)
[2019-03-18 17:20] LABS: Thyroid Stimulating Hormone 6.02 uIU/mL (0.47-4.68)
== END ==
PROVIDERS: Family Provider Internal Medicine Cardiovascular Disease; PCP Internal Medicine; Visit Provider Internal Medicine
DX: E03.9 Hypothyroidism, unspecified (principal); R31.9 Hematuria, unspecified; R59.1 Generalized enlarged lymph nodes
CPT/HCPCS: 84439; 84443; 84481; 85025; 88184; 88185; 88189